=== PATIENT | male | born 1965 | race Caucasian/White ===

== ENCOUNTER 2020-02-20 13:11 | Emergency (ER) | payer OTHER ==
[2020-02-20 13:25] VITALS: RESP 18; TEMP 97.8
[2020-02-20] MEDS ORDERED: ORPHENADRINE 30 MG/ML 2 ML VIAL IM STA (13:41)
[2020-02-20] MEDS ORDERED: HYDROcodone/APAP 5-325MG 1 EACH TAB PO STA (13:41)
[2020-02-20] MEDS ORDERED: methylPREDNISolone SOD SUCCI 125 MG/2 ML VIAL IM ONE (13:41)
[2020-02-20] MEDS ORDERED: KETOROLAC 15 MG/ML 1 ML VIAL IM STA (13:42)
--- NOTE | 2020-02-20 13:51 | ED ---
Back Pain HPI - General Chief Complaint: Back Pain/Injury Stated Complaint: lower back pain INQUCKER Time Seen by Provider: 02/20/20 13:25 Source: patient, RN notes reviewed, old records reviewed Limitations: no limitations - History of Present Illness Initial Comments: Patient is a 55-year-old male who presents to the ER today for chief complaint of lower back pain with radiation down bilateral legs. Patient reports his been having symptoms for the past week. 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 He states that he has history of chronic back pain. He states it seemed to flare more this week after doing heavy lifting. He denies any saddle anesthesias or abdominal pain. He denies any chest pain, shortness of breath. He states the pain seems to be worse with standing and walking however when he sits down and leans forward feels better. Patient states that he has had been told that he will need a fusion of L4 through 5 however he is not wanting to go through with this is he will then be off work. - Related Data Previous Rx's Medication Instructions Recorded Hydrocodone/Acetaminophen [[place] 1 each PO Q4HR PRN #15 tab 11/18/15 5-325] Cyclobenzaprine [Flexeril] 10 mg PO TID #12 tab 02/20/20 methylPREDNISolone Dose Pack 4 mg PO DIRECTED #21 package 02/20/20 [Medrol Dose Pack] Allergies Allergy/AdvReac Type Severity Reaction Status Date / Time codeine Allergy Rash/Hives Verified 02/20/20 13:25 Review of Systems ROS Statement: Those systems with pertinent positive or pertinent negative responses have been documented in the HPI. ROS Other: All systems not noted in ROS Statement are negative. Past Medical History Past Medical History: Hypertension History of Any Multi-Drug Resistant Organisms: None Reported Past Surgical History: Back Surgery Additional Past Surgical History / Comment(s): neck surgery Past Psychological History: No Psychological Hx Reported Smoking Status: Current every day smoker Past Alcohol Use History: Daily Past Drug Use History: None Reported General Exam - General Exam Comments Initial Comments: 55-year-old male. Alert and oriented. Limitations: no limitations General appearance: alert, in no apparent distress Head exam: Present: atraumatic, normocephalic, normal inspection Eye exam: Present: normal appearance, PERRL, EOMI. Absent: scleral icterus, conjunctival injection, periorbital swelling ENT exam: Present: normal exam, mucous membranes moist Neck exam: Present: normal inspection. Absent: tenderness, meningismus, lymphadenopathy Respiratory exam: Present: normal lung sounds bilaterally. Absent: respiratory distress, wheezes, rales, rhonchi, stridor Cardiovascular Exam: Present: regular rate, normal rhythm, normal heart sounds. Absent: systolic murmur, diastolic murmur, rubs, gallop, clicks GI/Abdominal exam: Present: soft, normal bowel sounds. Absent: distended, tenderness, guarding, rebound, rigid Extremities exam: Present: normal inspection, full ROM, normal capillary refill. Absent: tenderness, pedal edema, joint swelling, calf tenderness Back exam: Present: normal inspection, full ROM, tenderness (She has some lumbar right-sided paraspinal tenderness. Peripheral pulses distally dorsalis pedis and posterior tibial are 2+. No abdominal tenderness. No Skin lesions.) Neurological exam: Present: alert, oriented X3, CN II-XII intact Psychiatric exam: Present: normal affect, normal mood Skin exam: Present: warm, dry, intact, normal color. Absent: rash Course Vital Signs 02/20/20 13:21 Temperature 97.8 F Pulse Rate 98 Respiratory 18 Rate Blood Pressure 173/115 O2 Sat by Pulse 99 Oximetry Medical Decision Making - Medical Decision Making 55-year-old male presents the ER today with complaints of lower back pain for the past week. Patient's symptoms have been worse with movement. Does report some radiation down the legs. He states that he's had this back in the past. He's been taking Motrin for pain if any significant relief. He has no red flag symptoms denies cauda equina symptoms including saddle anesthesia. Patient reports no abdominal pain. Patient has normal pulses distally. He was given IM pain medication reevaluated. Patient is resting in bed. No acute distress. and advised close follow-up with PCP. Instructed Patient has requested pain medication and anti-inflammatory medicine. Disposition Clinical Impression: Back pain Disposition: HOME SELF-CARE Condition: Good Instructions (If sedation given, give patient instructions): Acute Low Back P ain (ED) Additional Instructions: Patient resting medications as prescribed. Advised close follow-up with primary care physician and back specialist. Return to the ED if any alarming signs or symptoms occur. Prescriptions: Cyclobenzaprine [Flexeril] 10 mg PO TID #12 tab methylPREDNISolone Dose Pack [Medrol Dose Pack] 4 mg PO DIRECTED #21 package Is patient prescribed a controlled substance at d/c from ED?: No Referrals: None,Stated [Primary Care Provider] - 1-2 days Shekhar Hitchcock DO [Doctor of Osteopathic Medicine] - 1-2 days Time of Disposition: 14:20
[2020-02-20] MEDS ORDERED: CYCLOBENZAPRINE 10MG STARTER 3 TAB BTL PO STA (14:21)
[2020-02-20] MEDS ORDERED: traMADol 50 MG STARTER PACK 3 TAB BTL PO STA (14:21)
[2020-02-20 14:38] VITALS: BP 166/109; PULSE 92
== END 2020-02-20 14:36 | disposition home or self-care (01) ==
LOC: EC 13:11
DX: M54.5 Low back pain (principal); I10 Essential (primary) hypertension; F17.200 Nicotine dependence, unspecified, uncomplicated; Z88.5 Allergy status to narcotic agent; Z98.890 Other specified postprocedural states
CPT/HCPCS: 96372 ×3; 99284; J2360; J2930; J1885

== ENCOUNTER 2020-03-28 15:34 | Emergency (ER) | payer OTHER ==
[2020-03-28 15:39] VITALS: RESP 18
[2020-03-28] MEDS ORDERED: CYCLOBENZAPRINE 10 MG TAB PO STA (15:52)
[2020-03-28] MEDS ORDERED: HYDROmorphone 1 MG/ML 1 ML SYRINGE IM STA (15:52)
--- NOTE | 2020-03-28 16:12 | ED ---
Back Pain HPI - General Chief Complaint: Back Pain/Injury Stated Complaint: Back pain Time Seen by Provider: 03/28/20 15:43 Source: patient, RN notes reviewed Limitations: no limitations - History of Present Illness Initial Comments: 55-year-old male presents emergency Department chief complaint of low back pain. Patient states that he's had increasing pain for while he was prior seen in emergency department approximate one month ago and was referred to Dr. Hitchcock in which she has been scheduled for CT and MRI of his lumbar spine. Patient states that he has developed some symptoms that radiates into his right leg he denies any bowel incontinence bladder retention no saddle anesthesias. Patient states that sitting down makes the pain feel better but states that sta nding up increases the pain. Patient works as a [employer] Previous Rx's Medication Instructions Recorded Hydrocodone/Acetaminophen [[place] 1 each PO Q4HR PRN #15 tab 11/18/15 5-325] Cyclobenzaprine [Flexeril] 10 mg PO TID #12 tab 02/20/20 methylPREDNISolone Dose Pack 4 mg PO DIRECTED #21 package 02/20/20 [Medrol Dose Pack] HYDROcodone/APAP 7.5-325MG [[place] 1 tab PO Q6HR PRN 3 Days #12 tab 03/28/20 7.5-325] Ibuprofen [Motrin] 600 mg PO Q8HR PRN #20 tab 03/28/20 methocarbamoL [Robaxin] 500 mg PO TID PRN #15 tab 03/28/20 predniSONE 50 mg PO DAILY #5 tab 03/28/20 Allergies Allergy/AdvReac Type Severity Reaction Status Date / Time codeine Allergy Rash/Hives Verified 03/28/20 15:39 Review of Systems ROS Statement: Those systems with pertinent positive or pertinent negative responses have been documented in the HPI. ROS Other: All systems not noted in ROS Statement are negative. Past Medical History Past Medical History: Hypertension Additional Past Medical History / Comment(s): chronic back issues. History of Any Multi-Drug Resistant Organisms: None Reported Past Surgical History: Back Surgery Additional Past Surgical History / Comment(s): neck surgery Past Psychological History: No Psychological Hx Reported Smoking Status: Current every day smoker Past Alcohol Use History: Daily Past Drug Use History: None Reported General Exam Limitations: no limitations General appearance: alert, in no apparent distress Head exam: Present: atraumatic, normocephalic, normal inspection Respiratory exam: Present: normal lung sounds bilaterally. Absent: respiratory distress, wheezes, rales, rhonchi, stridor Cardiovascular Exam: Present: regular rate, normal rhythm, normal heart sounds. Absent: systolic murmur, diastolic murmur, rubs, gallop, clicks GI/Abdominal exam: Present: soft, normal bowel sounds. Absent: distended, tenderness, guarding, rebound, rigid Extremities exam: Present: other (Lower extremity neurovascular intact equal color equal warmth full-strength pain with right leg straight leg raise) Back exam: Present: tenderness, paraspinal tenderness. Absent: full ROM, vertebral tenderness Neurological exam: Present: alert, oriented X3, reflexes normal. Absent: motor sensory deficit Skin exam: Present: warm, dry, intact, normal color. Absent: rash Course Vital Signs 03/28/20 15:36 Temperature 97.9 F Pulse Rate 61 Respiratory 18 Rate Blood Pressure 197/97 O2 Sat by Pulse 98 Oximetry Medical Decision Making - Medical Decision Making CT shows evidence of spondylolysis and stenosis. Patient has no red flag symptoms. Patient will be referred back to his orthopedic surgeon. Return parameters were discussed. Disposition Clinical Impression: Lumbar spinal stenosis Disposition: HOME SELF-CARE Condition: Stable Instructions (If sedation given, give patient instructions): Acute Low Back Pain (ED) Additional Instructions: Please return to the Emergency Department if symptoms worsen or any other concerns. Limit any heavy lifting, twisting or bending Prescriptions: Ibuprofen [Motrin] 600 mg PO Q8HR PRN #20 tab PRN Reason: Pain HYDROcodone/APAP 7.5-325MG [[place] 7.5-325] 1 tab PO Q6HR PRN 3 Days #12 tab PRN Reason: pain predniSONE 50 mg PO DAILY #5 tab methocarbamoL [Robaxin] 500 mg PO TID PRN #15 tab PRN Reason: muscle spasms Is patient prescribed a controlled substance at d/c from ED?: Yes When asked, does pt state using other controlled substances?: No If prescribed controlled substance>3 days was MAPS reviewed?: Prescribed <3 Days If opioid is for acute pain is fill amount 7 days or less?: Yes If Rx opioid, was Start Talking consent form obtained?: Yes Referrals: Heath Mackey MD [Primary Care Provider] - 1-2 days Shekhar Hitchcock DO [Doctor of Osteopathic Medicine] - 1-2 days Time of Disposition: 17:08
--- NOTE | 2020-03-28 16:45 | CT ---
EXAMINATION TYPE: CT lumbar spine wo con DATE OF EXAM: 03/28/2020 COMPARISON: None HISTORY: Lower back pain CT DLP: 656.6 mGycm Automated exposure control for dose reduction was used. Images obtained from the level of T12-S2 vertebra without contrast. There is 5 mm anterior subluxation of L4 in relation L5. There is no spondylolysis. There is mild fac et arthropathy in the lower lumbar spine. There is no compression fracture. There is mild lumbar disc space narrowing and more noticeable at L4-5. There is no evidence of focal bone destruction. There i s no lumbar paraspinal mass. There is ligamentum flavum thickening and facet arthropathy resulting in some spinal stenosis at L3-4 L4-5. Stenosis is more severe at L4-5. Abdominal aorta is atheromatous. IMPRESSION: There is a spinal stenosis at L3-4 L4-5 as above. Degenerative first-degree L4-5 spondylolisthesis co ntributing to the spinal stenosis. No fracture seen.
[2020-03-28 17:19] VITALS: BP 197/100; PULSE 90; TEMP 98.7
== END 2020-03-28 17:21 | disposition home or self-care (01) ==
LOC: EC 15:34
DX: M48.061 Spinal stenosis, lumbar region without neurogenic claudication (principal); M47.816 Spondylosis without myelopathy or radiculopathy, lumbar region; I10 Essential (primary) hypertension; F17.200 Nicotine dependence, unspecified, uncomplicated; Z88.5 Allergy status to narcotic agent
CPT/HCPCS: 72131; 99283; 96372; J1170

== ENCOUNTER → 2023-10-07 | Outpatient (CLI) | payer OTHER ==
[2023-10-07 19:13] LABS: ALT 46 U/L (10-49); AST 44 U/L (14-35); Albumin 4.4 g/dL (3.8-4.9); Albumin/Globulin Ratio 1.91 Ratio (1.60-3.17); Alkaline Phosphatase 77 U/L (41-126); BUN/Creat Ratio 10.29 Ratio (12.00-20.00); Blood Urea Nitrogen 7.2 mg/dL (9.0-27.0); Calcium 9.9 mg/dL (8.7-10.3); Chloride 101 mmol/L (96-109); Globulin 2.3 g/dL (1.6-3.3); Glucose 89 mg/dL (70-110); Potassium 4.3 mmol/L (3.5-5.5); Sodium 139 mmol/L (135-145); Total Bilirubin 0.3 mg/dL (0.3-1.2); Total Protein 6.7 g/dL (6.2-8.2)
[2023-10-07 19:40] LABS: Basophils # (A) 0.12 X 10*3/uL (0.00-0.10); Basophils % (A) 1.5 %; Eosinophils # (A) 1.38 X 10*3/uL (0.04-0.35); HCT 57.5 % (39.6-50.0); HGB 19.1 g/dL (13.0-17.0); Lymphocytes % (A) 28.4 %; MCH 34.2 pg (27.0-32.0); MCHC 33.2 g/dL (32.0-37.0); MCV 102.9 FL (80.0-97.0); Mean Platelet Volume 9.8 FL (9.5-12.2); Monocytes # (A) 1.11 X 10*3/uL (0.20-1.00); Monocytes % (A) 13.7 %; NRBC Per 100 WBC 0 X 10*3/uL (0.00-0.01); Neutrophils # (A) 3.17 X 10*3/uL (1.80-7.70); Neutrophils % (A) 39.2 %; Platelet Count 274 X 10*3/uL (140-440); RBC 5.59 X 10*6/uL (4.40-5.60); RDW 13.9 % (11.5-14.5)
== END | disposition home or self-care (01) ==
LOC: LABWHC1 15:06
PROVIDERS: ATTEND Family Medicine
DX: D72.829 Elevated white blood cell count, unspecified (principal); K74.60 Unspecified cirrhosis of liver
CPT/HCPCS: 36415; 80053; 85025

== ENCOUNTER → 2023-12-11 | Outpatient (CLI) | payer OTHER ==
[2023-12-11 15:08] LABS: Basophils # (A) 0.07 X 10*3/uL (0.00-0.10); Basophils % (A) 0.9 %; Eosinophils # (A) 1.23 X 10*3/uL (0.04-0.35); Eosinophils % (A) 15.5 %; HGB 17.5 g/dL (13.0-17.0); Lymphocytes # (A) 1.93 X 10*3/uL (0.90-5.00); Lymphocytes % (A) 24.4 %; MCH 35.2 pg (27.0-32.0); MCHC 33.7 g/dL (32.0-37.0); MCV 104.6 FL (80.0-97.0); Monocytes # (A) 0.78 X 10*3/uL (0.20-1.00); Monocytes % (A) 9.8 %; NRBC Per 100 WBC 0 X 10*3/uL (0.00-0.01); Neutrophils # (A) 3.89 X 10*3/uL (1.80-7.70); Neutrophils % (A) 49.1 %; Platelet Count 290 X 10*3/uL (140-440); RBC 4.97 X 10*6/uL (4.40-5.60); WBC 7.92 X 10*3/uL (4.50-10.00)
[2023-12-11 15:37] LABS: ALT 11 U/L (10-49); AST 23 U/L (14-35); Albumin 4.5 g/dL (3.8-4.9); Albumin/Globulin Ratio 2.05 Ratio (1.60-3.17); Alkaline Phosphatase 90 U/L (41-126); BUN/Creat Ratio 9.71 Ratio (12.00-20.00); Bilirubin, Conjugated 0.35 mg/dL (0.20-0.40); Bilirubin,Unconjugated 0.75 mg/dL (0.20-1.00); Blood Urea Nitrogen 6.8 mg/dL (9.0-27.0); Calcium 9.6 mg/dL (8.7-10.3); Carbon Dioxide 25.7 mmol/L (21.6-31.8); Chloride 99 mmol/L (96-109); Globulin 2.2 g/dL (1.6-3.3); Glucose 95 mg/dL (70-110); Potassium 4.8 mmol/L (3.5-5.5); Sodium 136 mmol/L (135-145); Total Bilirubin 1.1 mg/dL (0.3-1.2); Total Protein 6.7 g/dL (6.2-8.2)
[2023-12-11 19:14] LABS: Urine Alcohol Negative (Negative); Urine Barbiturate Negative (Negative); Urine Cocaine Negative (Negative); Urine Methadone Negative (Negative); Urine Opiates Positive (Negative); Urine Phencyclidine Negative (Negative)
== END | disposition home or self-care (01) ==
LOC: LABWHC1 11:49
PROVIDERS: ATTEND Family Medicine
DX: I10 Essential (primary) hypertension (principal); J44.9 Chronic obstructive pulmonary disease, unspecified; Z79.899 Other long term (current) drug therapy
CPT/HCPCS: 36415; 80053; 80306; 82248; 82785; 85025

== ENCOUNTER 2024-08-09 10:08 | Day surgery (SDC) | payer OTHER ==
[2024-08-05 14:43] VITALS: BMI 24.2
[~2024-08-09 10:08] MED LIST: LIDOCAINE 1% (10MG/ML) FOR IV START INTRADERMA PRN
[2024-08-09 10:31] VITALS: RESP 16; TEMP 97.8
[2024-08-09] MEDS: LACTATED RINGERS 1,000 ML IV SCH (10:34)
[2024-08-09] MEDS: IV FLUID CONTINUATION 1,000 ML IV ONE (10:34)
[2024-08-09] MEDS ORDERED: LIDOCAINE 2% (PF) 20 MG/ML 5 ML VIAL ONE (11:09)
[2024-08-09] MEDS ORDERED: PROPOFOL 10 MG/ML 20 ML VIAL IV ONE (11:09)
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
--- NOTE | 2024-08-09 11:58 | P.OP ---
Date of Procedure: 08/09/24 Preoperative Diagnosis: Gerd Postoperative Diagnosis: Antral gastritis Sliding hiatal hernia Procedure(s) Performed: EGD Colonoscopy Anesthesia: MAC Surgeon: Greg Cedeno Pathology: other (Antrum) Condition: stable Disposition: PACU Description of Procedure: The patient was placed on the endoscopy table in the lateral position. He received IV sedation. The Gastroflux oropharynx passed in the esophagus and the stomach. Scope was placed through the pylorus. The first and second portion of the duodenum appeared normal. Scope was then brought back to the antrum this was mildly Flaim. A biopsy was performed. The scope was then retroflexed and the Mainer of the stomach appeared normal. There was a sliding hiatal hernia. The GE junction was at 38 cm. The distal esophagus appeared normal. The proximal esophagus appeared normal scope was withdrawn from patient. Next digital rectal exams performed. This revealed external hemorrhoids. The flexible colonoscope was then placed the patient anus and passed throughout the entire colon. The ileocecal valve was visualized. The cecum, ascending and transverse colon appeared normal. The descending and sigmoid colon appeared normal. Scope was then brought back to the rectum this appeared normal. The scope was then withdrawn for the patient.
[2024-08-09 12:28] VITALS: BP 150/86; PULSE 72
== END 2024-08-09 13:09 | disposition home or self-care (01) ==
LOC: ORWHC2ENDO 10:08
PROVIDERS: ATTEND Surgery
DX: K21.9 Gastro-esophageal reflux disease without esophagitis (principal); K44.9 Diaphragmatic hernia without obstruction or gangrene; K29.50 Unspecified chronic gastritis without bleeding; K64.4 Residual hemorrhoidal skin tags; I10 Essential (primary) hypertension; J44.9 Chronic obstructive pulmonary disease, unspecified; Z91.89 Other specified personal risk factors, not elsewhere classified; F17.200 Nicotine dependence, unspecified, uncomplicated; Z79.51 Long term (current) use of inhaled steroids; Z79.899 Other long term (current) drug therapy; Z88.5 Allergy status to narcotic agent
CPT/HCPCS: 45378; 43239; J2704; J2003; 88305

== ENCOUNTER 2024-08-28 14:53 | Emergency (ER) | payer OTHER ==
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
[2024-08-28 16:35] LABS: Anion Gap 16 mmol/L; Blood Urea Nitrogen 12 mg/dL (9-20); Carbon Dioxide 24 mmol/L (22-30); Chloride 90 mmol/L (98-107); Glucose 100 mg/dL (74-99); Potassium 3.6 mmol/L (3.5-5.1); Sodium 130 mmol/L (137-145)
[2024-08-28 16:36] LABS: ALT 71 U/L (4-49); AST 138 U/L (17-59); African American GFR (CKD) >90 (>60 ml/min/1.73 sqM); Albumin 4.6 g/dL (3.5-5.0); Alkaline Phosphatase 139 U/L (38-126); Calcium 9.4 mg/dL (8.4-10.2); Non-African American GFR(CKD) >90 (>60 ml/min/1.73 sqM); Total Bilirubin 3.5 mg/dL (0.2-1.3); Total Protein 7.2 g/dL (6.3-8.2)
[2024-08-28 16:37] LABS: Basophils % (A) 0 %; Eosinophils # (A) 0.4 k/uL (0-0.7); Eosinophils % (A) 5 %; HCT 44.6 % (39.0-53.0); HGB 15.2 gm/dL (13.0-17.5); Lymphocytes % (A) 14 %; MCHC 34.1 g/dL (31.0-37.0); MCV 126.6 fL (80.0-100.0); Macrocytosis Marked; Mean Platelet Volume 8.4; Monocytes # (A) 0.6 k/uL (0-1.0); Monocytes % (A) 8 %; Neutrophils # (A) 5.3 k/uL (1.3-7.7); Neutrophils % (A) 72 %; Platelet Count 179 k/uL (150-450); RBC 3.52 m/uL (4.30-5.90); RDW 12.7 % (11.5-15.5); WBC 7.3 k/uL (3.8-10.6)
[2024-08-28 16:38] LABS: MCH 43.2 pg (25.0-35.0)
[2024-08-28] MEDS: MAG HYDROX/AL HYDROX/SIMETH 30 ML CUP PO PRN (16:43)
[2024-08-28] MEDS: diphenhydrAMINE 25 MG CAP PO STA (16:43)
[2024-08-28] MEDS: LIDOCAINE VISCOUS 2% 15 ML CUP PO ONE (16:44)
[2024-08-28] MEDS: SODIUM CHLORIDE 0.9% 1,000 ML IV ONE (16:47)
[2024-08-28] MEDS: ONDANSETRON 4 MG/2 ML VIAL IVP STA ×2 (16:53→17:24)
[2024-08-28 16:57] LABS: Stomatocytes Present
[2024-08-28 17:30] LABS: Lipase 286 U/L (23-300)
[2024-08-28 17:44] LABS: Alcohol 86 mg/dL
--- NOTE | 2024-08-28 18:03 | US ---
EXAMINATION TYPE: US gallbladder DATE OF EXAM: 08/28/2024 COMPARISON: NONE CLINICAL INDICATION: Male, 59 years old with history of Elevated LFTs, nausea; LFTs TECHNIQUE: Grayscale and color Doppler imaging of the right upper quadrant was performed. FINDINGS: EXAM MEASUREMENTS: Liver Length: 21.2 cm Gallbladder Wall: 0.2 cm CBD: obscured Right Kidney: 9.3x6.0x5.3 cm PRINTING GRAY CLOTH TENDER NOTES: Pancreas: Tail obscured by overlying bowel gas Liver: hepatomegaly and fatty infiltration Gallbladder: wnl Evidence for sonographic Eid's sign: No CBD: Obscured by overlying bowel gas Right Kidney: No hydronephrosis or masses seen exam limited by bowel gas and attenuation from the liver IMPRESSION: Hepatomegaly with underlying hepatic steatosis. [facility], , 08/28/2024 6:01 PM
[2024-08-28] MEDS: ONDANSETRON 4 MG ODT STARTER PACK 2 TAB BTL PO STA (19:22)
[2024-08-28 19:29] VITALS: BP 131/88; PULSE 110; RESP 20; TEMP 98.3
== END 2024-08-28 19:29 | disposition home or self-care (01) ==
LOC: EC 14:53
DX: R11.0 Nausea (principal); R14.3 Flatulence; I10 Essential (primary) hypertension; J44.9 Chronic obstructive pulmonary disease, unspecified; F17.200 Nicotine dependence, unspecified, uncomplicated; Z88.5 Allergy status to narcotic agent
CPT/HCPCS: 36415; 80053; 83690; 85025; 76705; 99284; 96374; 96361 ×3; G0480; J2405; S0119; 80320

== ENCOUNTER 2024-09-22 08:20 | Day surgery (SDC) | payer OTHER ==
[~2024-09-22 08:20] MED LIST changes: +HYDROmorphone 0.5 MG/0.5 ML SYRINGE IVP PRN; +MIDAZOLAM 2 MG/2 ML VIAL IV PRN; +fentaNYL (PF) 50 MCG/ML 2 ML AMP IVP PRN
[2024-09-22] MEDS: IV FLUID CONTINUATION 1,000 ML IV ONE (08:37)
[2024-09-22] MEDS: DEXAMETHASONE SOD PHOSPHATE 4 MG/ML 1 ML VIAL IV ONE (08:47)
[2024-09-22] MEDS: HEPARIN SODIUM,PORCINE 5,000 UNIT/ML 1 ML VIAL SQ PRN (08:47)
[2024-09-22] MEDS: ACETAMINOPHEN TAB 500 MG TAB PO PRN (08:47)
[2024-09-22] MEDS: ONDANSETRON 4 MG/2 ML VIAL IVP ONE (08:47)
[2024-09-22] MEDS: LACTATED RINGERS 1,000 ML IV SCH (08:48)
[2024-09-22] MEDS: FAMOTIDINE 20 MG/2 ML VIAL IV STA (09:19)
[2024-09-22] MEDS ORDERED: SUCCINYLCHOLINE CHLORIDE 200 MG/10 ML VIAL IV ONE (09:26)
[2024-09-22] MEDS ORDERED: PROPOFOL 10 MG/ML 20 ML VIAL IV ONE (09:26)
[2024-09-22] MEDS ORDERED: MIDAZOLAM 2 MG/2 ML VIAL ONE (09:26)
[2024-09-22] MEDS ORDERED: fentaNYL (PF) 50 MCG/ML 2 ML AMP ONE (09:26)
[2024-09-22] MEDS ORDERED: GLYCOPYRROLATE 0.2 MG/ML 2 ML VIAL ONE (09:26)
[2024-09-22] MEDS ORDERED: KETAMINE HCL IN 0.9 % NACL 50 MG/5 ML SYRINGE ONE (09:26)
[2024-09-22] MEDS ORDERED: NEOSTIGMINE 1 MG/ML 10 ML VIAL ONE (09:26)
[2024-09-22] MEDS ORDERED: ROCURONIUM 10 MG/ML (5 ML VIAL) IV ONE (09:26)
[2024-09-22] MEDS ORDERED: PHENYLEPHRINE-0.9% NACL SYG 1,000 MCG/10 ML SYRINGE ONE (09:26)
[2024-09-22] MEDS: ceFAZolin 2 GM in DEXTROSE 5% IN WATER 50 ML IVPB PRN (09:30)
[2024-09-22] MEDS: LIDOCAINE 1%-EPI 1:100,000 20 ML VIAL SQ ONE (10:03)
[2024-09-22] MEDS ORDERED: ONDANSETRON 4 MG/2 ML VIAL IVP PRN (11:04)
--- NOTE | 2024-09-22 11:04 | P.OP ---
Date of Procedure: 09/22/24 Preoperative Diagnosis: Gerd Sliding hiatal hernia Postoperative Diagnosis: Gerd Sliding hiatal hernia Hepatomegaly Procedure(s) Performed: Laparoscopic Spencer medication with 180 degree wrap Anesthesia: MAULIK Surgeon: Greg Cedeno Estimated Blood Loss (ml): 5 Pathology: none sent Condition: stable Disposition: PACU Description of Procedure: The patient was placed on the operating table in the supine position. The patient received general anesthesia. And was placed in dorsal lithotomy position. The patient was prepped and draped in the usual sterile fashion. The skin incision sites were anesthetized with 1% local Xylocaine. The skin was incised in the left periumbilical area and then using a blade less 5 mm trocar under direct visualization panel cavity was entered. After adequate insufflation the laparoscope was then placed into the peritoneal cavity. Next a 5 mm trochars placed in the right epigastric position. Another 5 millimeter trocar the right lateral position. Another 5 millimeter trocar in the left lateral position a 5 mm trocar is placed in the left epigastric position. And then the initial 5 mm trocar was exchanged for a 10 mm trocar. Patient was noted to have hepatomegaly. The left lateral lobe liver was retracted. The hernia was seen. The crural defect was then dissected using the Harmonic scissors device. A 360 crural dissection was performed the esophagus stomach was reduced back into the peritoneal Cavity. The crural defect was then closed using 2-0 Ethibond suture. Next the fundus of the stomach was mobilized using the [place] scissors device. and then a 58-Albanian bougie dilator was placed oropharynx passed into the esophagus and stomach the fundal plication wrap was then performed by grasping the fundus posteriorly and bringing it around the esophagus. A 180 degree fundoplication was performed with 2-0 Ethibond suture. There was no injury seen to the stomach or esophagus. The dilator was then withdrawn. The abdomen was irrigated there is no bleeding seen. The trochars were then withdrawn and then skin incision sites were closed using 3-0 Monocryl suture Steri-Strips are applied. Patient thought procedure well and sent to recovery room in stable condition.
[2024-09-22] MEDS: D5-0.45% NACL WITH KCL 20MEQ/L 1,000 ML IV SCH (12:06)
[2024-09-22] MEDS ORDERED: LORazepam 1 MG TAB PO PRN ×3 (12:15)
[2024-09-22] MEDS ORDERED: LORazepam 0.5 MG TAB PO PRN (12:15)
[2024-09-22] MEDS: NICOTINE 21MG/24HR PATCH TRANSDERM SCH (13:03)
[2024-09-22] MEDS: THIAMINE 100 MG/ML 2 ML VIAL IM STA (13:03)
[2024-09-22] MEDS: HYDROmorphone 2 MG/ML 1 ML SYRINGE IVP PRN (13:08)
[2024-09-22] MEDS ORDERED: GAS X PO SCH (14:00)
[2024-09-22 14:10] VITALS: BMI 22.3
--- NOTE | 2024-09-22 14:55 | FL ---
EXAMINATION TYPE: FL esophagus cervic/pharynx DATE OF EXAM: 09/22/2024 LIMITED UGI-ESOPHAGRAM: CLINICAL HISTORY: HIATAL HERNIA SURGERY TODAY TECHNIQUE: Limited esophagram is performed utilizing 20 oz of Omnipaque 350. A total of 15 seconds o f fluoroscopic time was utilized during procedure. FINDINGS: The patient swallowed contrast without difficulty or delay. Esophageal peristalsis and mo tility are within normal limits. There is good flow of contrast along the diaphragmatic hiatus into t he stomach, there is no evidence of contrast extravasation to suggest leak. No persistent hiatal gaby ia is seen. Patient remains asymptomatic. IMPRESSION: No evidence of leak or significant obstruction status post Kenny fundoplication surgery earlier today. [facility], , 09/22/2024 2:52 PM
[2024-09-22] MEDS: ceFAZolin 2 GM in DEXTROSE 5% IN WATER 50 ML IVPB SCH (17:21)
[2024-09-22] MEDS: SYMBICORT 80-4.5 MCG INHALER INHALATION SCH (19:21)
[2024-09-22] MEDS: QUEtiapine 25 MG TAB PO SCH (20:15)
[2024-09-22] MEDS: MELATONIN 5 MG TABLET PO SCH (20:15)
[2024-09-22] MEDS: HYDROcodone/APAP 10-325MG 1 EACH TAB PO SCH (20:15)
--- NOTE | 2024-09-23 03:58 | CONS ---
CONSULTATION HISTORY OF PRESENT ILLNESS: A 59-year-old white male, admitted for consult after diaphragmatic hernia repair. Home medications have been reordered. He wants to advance his diet, waiting on Dr. Cedeno. Home medications have been reviewed. PAST MEDICAL HISTORY: COPD, nicotine addiction. PAST SURGICAL HISTORY: See old chart. SOCIAL HISTORY: Smoker for many many years. Alcohol drinker. REVIEW OF SYSTEMS: A 14-point review of systems otherwise negative. PHYSICAL EXAMINATION: VITAL SIGNS: Stable. Afebrile. CARDIOVASCULAR: S1, S2. LUNGS: Decreased breath sounds x4. ABDOMEN: Soft. EXTREMITIES: No edema. PSYCH: Fair mood and affect. NEUROLOGIC: Alert and oriented x3. ASSESSMENT: Status post Kenny repair, diaphragmatic hernia repair, gastroesophageal reflux disease, chronic obstructive pulmonary disease, nicotine addiction. Continue current treatments. Prognosis guarded. MMODL / IJN: [id number] /
[2024-09-23 07:22] VITALS: BP 127/69; PULSE 83; RESP 18; TEMP 97.6
[2024-09-23] MEDS: ENOXAPARIN 40 MG/0.4 ML SYRINGE SQ SCH (08:08)
[2024-09-23] MEDS: MULTIVITAMINS, THERA 1 EACH TAB PO SCH (08:09)
[2024-09-23] MEDS: THIAMINE 100 MG TAB PO SCH (08:09)
[2024-09-23] MEDS: FOLIC ACID 1 MG TAB PO SCH (08:10)
[2024-09-23] MEDS: PANTOPRAZOLE 40 MG TABLET PO SCH (08:10)
[2024-09-23] MEDS: amLODIPine 5 MG TAB PO SCH (08:10)
[2024-09-23] MEDS: TIOTROPIUM 2.5 MCG INHALER INHALATION SCH (08:16)
--- NOTE | 2024-09-23 11:01 | P.DS ---
Providers Expected date of discharge: 09/23/24 Attending physician: Greg Cedeno Consults: 09/22/24 11:04 Consult Physician Routine Consulting Provider: Heath Mackey Consult Reason/Comments: Alcohol abuse Do you want consulting provider notified?: Yes Primary care physician: Heath Mackey Hospital Course: Discharge diagnosis 1. GERD 2. Sliding hiatal hernia 3. Hepatomegaly 4. Alcohol abuse Hospital course This is a 59-year-old male with a known hiatal hernia. He is status post laparoscopic Niesen fundoplication with 180 degree wrap. Patient tolerated surgery well. Pain is controlled. He is tolerating liquid diet. He is afebrile. He has been up and ambulating. He is having flatus. Upper GI shows no evidence of leak or obstruction. Patient educated to remain on a full liquid diet for the next 2 weeks. Patient is stable for discharge. Please refer to chart for any further details. Physician Case Loader Operator note has been reviewed by physician. Signing provider agrees with the documented findings, assessment, and plan of care. Patient Condition at Discharge: Stable Plan - Discharge Summary Discharge Rx Participant: No New Discharge Prescriptions: Continue Tiotropium 18 Mcg/Puff [Spiriva] 1 puff INHALATION DAILY HYDROcodone/APAP 10-325MG [Nelson 10-325] 1 tab PO BID Gas X 1 dose PO DIRECTED amLODIPine [Norvasc] 5 mg PO DAILY Melatonin [Melatonin ODT] 12 mg PO HS Fluticasone Propion/Salmeterol [Advair 250-50 Diskus] 1 inhalation PO BID Omeprazole 40 mg PO DAILY QUEtiapine FUMARATE [SEROquel] 25 mg PO HS Discharge Medication List Fluticasone Propion/Salmeterol [Advair 250-50 Diskus] 1 inhalation PO BID 08/05/24 [History] HYDROcodone/APAP 10-325MG [Nelson 10-325] 1 tab PO BID 08/05/24 [History] Melatonin [Melatonin ODT] 12 mg PO HS 08/05/24 [History] Omeprazole 40 mg PO DAILY 08/05/24 [History] QUEtiapine FUMARATE [SEROquel] 25 mg PO HS 08/05/24 [History] Tiotropium 18 Mcg/Puff [Spiriva] 1 puff INHALATION DAILY 08/05/24 [History] amLODIPine [Norvasc] 5 mg PO DAILY 08/05/24 [History] Gas X 1 dose PO DIRECTED 09/15/24 [History] Follow up Appointment(s)/Referral(s): Greg Cedeno MD [STAFF PHYSICIAN] - 09/30/24 2:10 pm Activity/Diet/Wound Care/Special Instructions: No driving while taking Nelson No lifting over 10 pounds Shower daily. No soaking or tub baths for 2 weeks Very light activity until you are reevaluated at your follow up appointment with your surgeon Full liquid diet for the next 2 weeks. No straws or carbonated beverages.
== END 2024-09-23 12:30 | disposition home or self-care (01) ==
LOC: OR 08:20 → 6NMEDSUR 10:40 → OR 09-23 12:30
PROVIDERS: ATTEND Surgery
DX: K44.9 Diaphragmatic hernia without obstruction or gangrene (principal); K21.9 Gastro-esophageal reflux disease without esophagitis; R16.0 Hepatomegaly, not elsewhere classified; F10.10 Alcohol abuse, uncomplicated; J44.9 Chronic obstructive pulmonary disease, unspecified; I10 Essential (primary) hypertension; F17.200 Nicotine dependence, unspecified, uncomplicated
CPT/HCPCS: 94640; 74210; 43280; 43450; S4990; J1171; J1644; J1100; J3411; J0690; J2405; J1308

== ENCOUNTER → 2024-10-21 | Outpatient (CLI) | payer OTHER ==
--- NOTE | 2024-10-21 10:06 | US ---
EXAMINATION TYPE: US gallbladder DATE OF EXAM: 10/21/2024 COMPARISON: US 08/28/2024 CLINICAL INDICATION: Male, 59 years old with history of R10.11 RIGHT UPPER QUADRANT PAIN; RUQ pain po st hernia surgery, patient experiencing gas. TECHNIQUE: Grayscale and color Doppler imaging of the right upper quadrant. FINDINGS: EXAM MEASUREMENTS: Liver Length: 17.1 cm Gallbladder Wall: 0.3 cm CBD: 0.5 cm, color Doppler imaging was utilized to isolate the common bile duct for measurement. Right Kidney: 9.9 x 5.8 x 6.0 cm SLUBBER HAND NOTES: Exam limited by bowel gas and patient body habitus. Pancreas: portions visualized wnl, tail obscured by overlying bowel gas Liver: Appears enlarged and heterogeneous, difficult to penetrate Gallbladder: Gallbladder measuring 10.1 x 4.6 cm. Possible hydropic vs normal etiology. Evidence for sonographic Eid's sign: No CBD: wnl Right Kidney: No hydronephrosis or masses seen Suboptimal study. Heterogeneous hyperechoic appearance of liver redemonstrated. This limits evaluatio n for focal masses. Finding likely on basis of diffuse fatty infiltrative hepatocellular disease. Gal lbladder has distended margins but no shadowing mobile gallstones. IMPRESSION: Suboptimal study. No gallstones are seen. [facility], , 10/21/2024 10:04 AM
== END | disposition home or self-care (01) ==
LOC: RADUSWWP 09:04
PROVIDERS: ATTEND Surgery
DX: R10.11 Right upper quadrant pain (principal)
CPT/HCPCS: 76705

== ENCOUNTER → 2024-11-23 | Outpatient (CLI) | payer OTHER ==
--- NOTE | 2024-11-23 09:16 | NM ---
EXAMINATION TYPE: NM hepatobiliary w EF DATE OF EXAM: 11/23/2024 COMPARISON: NONE INDICATION: Right upper quadrant pain TECHNIQUE: After the intravenous administration of 5.23 mCi Tc 99m Mebrofenin hepatobiliary scintigra phy is performed. Images were obtained immediately post injection. FINDINGS: There is prompt uptake and excretion of radiotracer by the liver. Extrahepatic ducts are identified at 6 minutes. The gallbladder is visualized within 6 minutes. Small bowel activity is noted within 6 minutes. At one hour 8 ounces of oral ensure plus is given to mimic CCK and gallbladder ejection fraction is c alculated at 76 %, which is in the normal range. (Normal >35% and <80%.). IMPRESSION: 1. Normal hepatobiliary scan [facility], , 11/23/2024 9:13 AM
== END | disposition home or self-care (01) ==
LOC: RADNMMAIN 06:51
PROVIDERS: ATTEND Family Medicine
DX: R10.11 Right upper quadrant pain (principal)
CPT/HCPCS: 78226; A9537